=== PATIENT | male | born 1945 ===

== ENCOUNTER 2017-11-07 06:57 | Day surgery (SDC) | payer OTHER | END 2017-11-07 13:25 | disposition home or self-care (01) | LOC: AMB-ENDOS 06:57 | DX: D12.2 Benign neoplasm of ascending colon (principal); D12.5 Benign neoplasm of sigmoid colon; K57.30 Diverticulosis of large intestine without perforation or abscess without bleeding ==

== ENCOUNTER 2022-06-04 06:00 | Day surgery (SDC) | payer OTHER ==
[~2022-06-04] VITALS: Ht 180.3 cm; Wt 68.0 kg
[2022-06-04] MEDS ORDERED: ULTRACET PO (08:58)
[2022-06-04] MEDS ORDERED: COLACE100 MG PO (09:47)
== END 2022-06-04 13:50 | disposition home or self-care (01) ==
LOC: CIR.AMB 06:00
PROVIDERS: ATTEND Surgery
DX: D12.8 Benign neoplasm of rectum (principal); Z20.822 Contact with and (suspected) exposure to COVID-19; I10 Essential (primary) hypertension; E78.5 Hyperlipidemia, unspecified; Z86.73 Personal history of transient ischemic attack (TIA), and cerebral infarction without residual deficits; G43.909 Migraine, unspecified, not intractable, without status migrainosus; M19.90 Unspecified osteoarthritis, unspecified site

== ENCOUNTER 2023-11-08 09:30 | Inpatient (IN) | payer OTHER ==
[~2023-11-08] VITALS: Ht 172.7 cm; Wt 68.0 kg
[~2023-11-08 09:30] MED LIST: COLACE100 MG PO; ULTRACET PO
[2023-11-08] MEDS ORDERED: LOPRESSOR25 MG (13:15)
[2023-11-08] MEDS ORDERED: LOSARTAN POTASS50 MG (13:16)
[2023-11-08] MEDS ORDERED: LIPITOR40 MG (13:16)
[2023-11-08] MEDS ORDERED: XARELTO20 MG (13:16)
[2023-11-15] MEDS ORDERED: CEFTRIAXONE SODIUM 2,000 MG VIAL ONE (06:58)
[2023-11-15] MEDS ORDERED: METRONIDAZOLE/SODIUM CHLORIDE 500 MG/100 ML PIGGYBACK IV ONE (06:58)
[2023-11-15] MEDS ORDERED: LIDOCAINE HCL 1%/Epi 20ML VIAL IJ ONE ×2 (07:36→08:15)
[2023-11-15] MEDS ORDERED: BUPIVACAINE HCL/PF 0.5% 30ML ML ONE (07:36)
[2023-11-15] MEDS ORDERED: METRONIDAZOLE/SODIUM CHLORIDE 200 ML IV ONE (08:15)
[2023-11-15] MEDS ORDERED: BUPIVACAINE HCL/PF 0.5% 30ML ML IU ONE (08:15)
[2023-11-15] MEDS ORDERED: CEFTRIAXONE SODIUM 2,000 MG in 0.9 % SODIUM CHLORIDE 50 ML IV ONE (08:15)
[2023-11-15] MEDS ORDERED: SUGAMMADEX SODIUM 200 MG/2 ML VIAL IV ONE ×2 (09:07→09:30)
[2023-11-15] MEDS ORDERED: MORPHINE SULFATE 4 MG/ML CARTRIDGE IV PRN (09:30)
[2023-11-15] MEDS ORDERED: OxyCODONE HCL 5 MG TABLET (ROXICODONE) PO PRN (09:30)
[2023-11-15] MEDS ORDERED: ONDANSETRON HCL 2 MG/ML VIAL IV PRN (09:30)
[2023-11-15] MEDS ORDERED: INSULIN LISPRO 300 UNIT/3 ML UNITS SUBCUTANEO PRN (09:30)
[2023-11-15] MEDS ORDERED: DEXTROSE 50 % IN WATER 0.5 G/ML DISP.SYRIN IV PRN (09:30)
[2023-11-15] MEDS ORDERED: RINGERS SOLUTION,LACTATED 1,000 ML IV SCH (09:30)
[2023-11-15] MEDS ORDERED: hydrALAZINE HCL 20 MG VIAL ONE (10:18)
[2023-11-15 12:49] LABS: HEMATOCRIT 40.6 % (39.0-48.0); HEMOGLOBIN 13.9 g/dL (13-16.00); MEAN CELL VOLUME 87.1 fL (80.0-100.00); MEAN CORPUSCULAR HEMOGLOBIN 29.8 pg (27.00-32.0); MEAN CORPUSCULAR HGB CONC 34.2 g/dl (32.0-36.0); PLATELET COUNT 154 K/uL (150-450); RED BLOOD COUNT 4.66 M/uL (4.00-6.00); RED CELL DISTRIBUTION WIDTH 13.6 % (11.5-14.5)
[2023-11-15] MEDS ORDERED: HYOSCYAMINE SULFATE 0.125 MG TAB.SUBL SL SCH (13:00)
[2023-11-15 13:26] LABS: ALBUMIN 3.8 gm/dL (3.4-5.0); CREATININE SERUM 1.23 mg/dL (0.70-1.30); GFR 57.36; MAGNESIUM 1.8 mg/dL (1.8-2.4); PHOSPHOROUS 2.9 mg/dL (2.5-4.9); POTASSIUM 3.93 mEq/L (3.5-5.1)
[2023-11-15] MEDS ORDERED: ACETAMINOPHEN 500 MG GEL..CAP PO SCH (14:00)
[2023-11-15] MEDS ORDERED: ENALAPRILAT DIHYDRATE 1.25 MG/ML VIAL IV PRN (15:00)
[2023-11-15] MEDS ORDERED: GABAPENTIN 300 MG CAPSULE PO SCH (17:00)
[2023-11-15] MEDS ORDERED: POLYETHYLENE GLYCOL 3350 17 GM BLIST.PACK PO SCH (17:00)
[2023-11-15] MEDS ORDERED: CELECOXIB 200 MG CAPSULE PO SCH (21:00)
[2023-11-15] MEDS ORDERED: FAMOTIDINE/PF 20 MG/2 ML VIAL IV PUSH SCH (21:00)
[2023-11-16 07:00] LABS: HEMOGLOBIN 12.6 g/dL (13-16.00); MEAN CORPUSCULAR HEMOGLOBIN 30.4 pg (27.00-32.0); RED BLOOD COUNT 4.14 M/uL (4.00-6.00)
[2023-11-16 07:21] LABS: ALBUMIN 3.1 gm/dL (3.4-5.0); CALCIUM 8.5 mg/dL (8.5-10.1); CREATININE SERUM 1.4 mg/dL (0.70-1.30); GFR 49.4; MAGNESIUM 1.8 mg/dL (1.8-2.4); PHOSPHOROUS 3.2 mg/dL (2.5-4.9)
[2023-11-16 07:47] LABS: PLATELET COUNT 126 K/uL (150-450)
[2023-11-16] MEDS ORDERED: LOSARTAN POTASSIUM 50 MG TABLET PO SCH (09:00)
[2023-11-16] MEDS ORDERED: METOPROLOL SUCCINATE 50 MG TAB.SR.24H PO SCH (09:00)
[2023-11-16] MEDS ORDERED: 0.9 % SODIUM CHLORIDE 1,000 ML IV SCH (11:15)
[2023-11-16] MEDS ORDERED: hydrALAZINE HCL 20 MG VIAL IV PRN (11:30)
[2023-11-16] MEDS ORDERED: ENOXAPARIN SODIUM 40 MG/0.4 ML SYRINGE SUBCUTANEO SCH (17:00)
[2023-11-16] MEDS ORDERED: GABAPENTIN 100 MG CAPSULE PO SCH (17:00)
[2023-11-16] MEDS ORDERED: ATORVASTATIN CALCIUM 40 MG TABLET PO SCH (17:00)
[2023-11-16] MEDS ORDERED: GABAPENTIN 300 MG CAPSULE PO SCH (21:00)
[2023-11-17 07:23] LABS: HEMOGLOBIN 12.3 g/dL (13-16.00); MEAN CORPUSCULAR HEMOGLOBIN 29.8 pg (27.00-32.0); MEAN CORPUSCULAR HGB CONC 34.3 g/dl (32.0-36.0); PLATELET COUNT 132 K/uL (150-450); RED BLOOD COUNT 4.14 M/uL (4.00-6.00); RED CELL DISTRIBUTION WIDTH 14.2 % (11.5-14.5)
[2023-11-17 07:57] LABS: CREATININE SERUM 1.21 mg/dL (0.70-1.30); GFR 58.46; PHOSPHOROUS 2.7 mg/dL (2.5-4.9); POTASSIUM 4.68 mEq/L (3.5-5.1)
[2023-11-17] MEDS ORDERED: ENOXAPARIN SODIUM 40 MG/0.4 ML SYRINGE SUBCUTANEO SCH (09:00)
[2023-11-17 11:02] LABS: PH,URINE 6.5 (5.0-8.0); URINE APPEARANCE Clear; URINE BILIRRUBIN Negative (NEGATIVE); URINE BLOOD Negative; URINE COLOR Yellow; URINE GLUCOSE Negative (NEGATIVE); URINE LEUKOCYTE Negative; URINE NITRATE Negative; URINE PROTEIN 30 (NEGATIVE); URINE UROBILINOGEN 0.2 E.U./dl
[2023-11-17 11:03] LABS: URINE EPITHELIAL CELLS 2.9 uL (0.0-38.8)
[2023-11-17 11:19] LABS: URINE BACTERIA 3.7 uL (0.0-1933); URINE RBC 1.8 uL (0.0-20.8)
[2023-11-17] MEDS ORDERED: SODIUM CHLORIDE 0.45 % 1,000 ML IV SCH (12:15)
[2023-11-18] MEDS ORDERED: AMLODIPINE BESYLATE 5 MG TABLET PO STA (06:22)
[2023-11-18] MEDS ORDERED: DILTIAZEM HCL 125 MG in 0.9 % SODIUM CHLORIDE 100 ML IV SCH (07:15)
[2023-11-18] MEDS ORDERED: DILTIAZEM HCL 25 MG/5 ML VIAL IV ONE (07:15)
[2023-11-18 09:42] LABS: HEMATOCRIT 38.6 % (39.0-48.0); HEMOGLOBIN 13.1 g/dL (13-16.00); MEAN CELL VOLUME 89.2 fL (80.0-100.00); MEAN CORPUSCULAR HEMOGLOBIN 30.2 pg (27.00-32.0); MEAN CORPUSCULAR HGB CONC 33.8 g/dl (32.0-36.0); PLATELET COUNT 134 K/uL (150-450); RED BLOOD COUNT 4.33 M/uL (4.00-6.00); RED CELL DISTRIBUTION WIDTH 13.5 % (11.5-14.5)
[2023-11-18 10:13] LABS: CALCIUM 9.3 mg/dL (8.5-10.1); CREATININE SERUM 1.44 mg/dL (0.70-1.30); GFR 47.82; MAGNESIUM 1.8 mg/dL (1.8-2.4); POTASSIUM 3.88 mEq/L (3.5-5.1)
[2023-11-18 10:15] LABS: TSH 2.46 uIU/mL (0.358-3.74)
[2023-11-18 10:17] LABS: ABG PH 7.474 (7.35-7.45); ABG PO2 64.7 mmHg (80-100); ABG pCO2 30.4 mmHg (35-45); BASE EXCESS -0.6 mmol/l; BICARBONATE 21.9 mmol/l (23-25); SaO2 93.8 %; Tco2 22.8 mmol/l
[2023-11-18 10:19] LABS: allen test SATISFACTORY; o2 21 %; puncture site RADIAL RIGHT
[2023-11-18 10:43] LABS: T4 TOTAL 13.43 UG/DL (4.5-12.1)
[2023-11-18 10:54] LABS: PHOSPHOROUS 1.1 mg/dL (2.5-4.9)
[2023-11-18 13:59] LABS: HEMATOCRIT 38.1 % (39.0-48.0); HEMOGLOBIN 13.2 g/dL (13-16.00); MEAN CELL VOLUME 88.7 fL (80.0-100.00); MEAN CORPUSCULAR HEMOGLOBIN 30.8 pg (27.00-32.0); MEAN CORPUSCULAR HGB CONC 34.7 g/dl (32.0-36.0); PLATELET COUNT 161 K/uL (150-450); RED BLOOD COUNT 4.29 M/uL (4.00-6.00); RED CELL DISTRIBUTION WIDTH 13.8 % (11.5-14.5)
[2023-11-18] MEDS ORDERED: POTASSIUM PHOS,M-BASIC-D-BASIC 3 MM/ML VIAL IV ONE (14:00)
[2023-11-18] MEDS ORDERED: METOPROLOL SUCCINATE 50 MG TAB.SR.24H PO SCH (21:00)
[2023-11-19] MEDS ORDERED: AMLODIPINE BESYLATE 5 MG TABLET PO SCH (09:00)
[2023-11-19] MEDS ORDERED: METOPROLOL TARTRATE 50 MG TABLET PO SCH (13:00)
[2023-11-19] MEDS ORDERED: POTASSIUM PHOS,M-BASIC-D-BASIC 15 MM in 0.9 % SODIUM CHLORIDE 250 ML IV ONE (17:00)
[2023-11-19] MEDS ORDERED: hydrALAZINE HCL 50 MG TABLET PO SCH (17:00)
[2023-11-20] MEDS ORDERED: METOPROLOL TARTRATE 50 MG TABLET PO ONE (01:43)
[2023-11-20] MEDS ORDERED: LOSARTAN POTASSIUM 100 MG TABLET PO SCH (09:00)
[2023-11-21 07:08] LABS: CALCIUM 8.7 mg/dL (8.5-10.1); CREATININE SERUM 1.08 mg/dL (0.70-1.30); GFR 66.65; POTASSIUM 3.73 mEq/L (3.5-5.1)
[2023-11-21] MEDS ORDERED: RIVAROXABAN 20 MG TABLET PO SCH (13:50)
[2023-11-22] MEDS ORDERED: XARELTO20 MG PO (14:41)
[2023-11-22] MEDS ORDERED: HYDRALAZINE HCL50 MG PO (14:41)
[2023-11-22] MEDS ORDERED: LOSARTAN POTAS100 MG PO (14:41)
[2023-11-22] MEDS ORDERED: LIPITOR40 MG PO (14:41)
[2023-11-22] MEDS ORDERED: METOPROLOL TART50 MG PO (14:41)
[2023-11-22] MEDS ORDERED: AMLODIPINE BESYL5 MG PO (14:41)
== END 2023-11-22 16:17 | disposition home or self-care (01) | DRG 329 ==
LOC: SURG 11-15 05:20 → O/R 11-15 05:20 → SURH 11-15 07:00 → SURG 11-15 10:33
PROVIDERS: Internal Medicine; Internal Medicine Geriatric Medicine; ADMIT Surgery; ATTEND Surgery
PROC: 07BB4ZZ Excision of Mesenteric Lymphatic, Percutaneous Endoscopic Approach (ICD-10-PCS; 2023-11-15)
PROC: 0DTF4ZZ Resection of Right Large Intestine, Percutaneous Endoscopic Approach (ICD-10-PCS; principal; 2023-11-15 07:00)
PROC: 4A12X4Z Monitoring of Cardiac Electrical Activity, External Approach (ICD-10-PCS; 2023-11-18)
PROC: B24BZZZ Ultrasonography of Heart with Aorta (ICD-10-PCS; 2023-11-18)
DX: D12.2 Benign neoplasm of ascending colon (principal); I21.A1 Myocardial infarction type 2; I48.20 Chronic atrial fibrillation, unspecified; K92.1 Melena; I97.89 Other postprocedural complications and disorders of the circulatory system, not elsewhere classified; R59.0 Localized enlarged lymph nodes; D12.8 Benign neoplasm of rectum; I11.9 Hypertensive heart disease without heart failure; I25.10 Atherosclerotic heart disease of native coronary artery without angina pectoris